=== PATIENT | female | born 1995 | race Hispanic/Latino ===

== ENCOUNTER 2023-09-14 18:00 | Inpatient (IN) | payer OTHER ==
[~2023-09-14 18:00] MED LIST: Bupivacaine 0.25% HCL 30 ML VIAL ONE; Bupivacaine/Epinephrine 0.25% 30 ML VIAL ONE
[2023-09-14 18:50] VITALS: BMI 41.5
[2023-09-14] MEDS ORDERED: Tranexamic Acid 1,000 MG/10 ML VIAL IVP PRN (18:50)
[2023-09-14] MEDS ORDERED: Oxytocin 30 units/NS 500 ML 500 ML IV SCH ×2 (18:50)
[2023-09-14] MEDS ORDERED: Carboprost 250 MCG/ML AMP IM PRN (18:50)
[2023-09-14] MEDS ORDERED: hydrALAZINE 20 MG/ML VIAL SLOW IVP PRN (18:50)
[2023-09-14] MEDS ORDERED: Diphenoxylate HCl/Atropine Tablet PO PRN (18:50)
[2023-09-14] MEDS ORDERED: Lidocaine 1% (PF) 30 ML VIAL SC PRN (18:50)
[2023-09-14] MEDS ORDERED: Misoprostol 200 MCG TAB PR PRN (18:50)
[2023-09-14] MEDS ORDERED: Ondansetron PF 4 MG/2 ML Vial IVP PRN (18:50)
[2023-09-14] MEDS ORDERED: Methylergonovine 0.2 MG/ML VIAL IM PRN (18:50)
[2023-09-14] MEDS ORDERED: Acetaminophen 500 MG TAB PO PRN (18:50)
[2023-09-14] MEDS ORDERED: Promethazine HCl 25 MG/ML VIAL IM PRN (18:50)
[2023-09-14] MEDS: Lactated Ringer's 1,000 ML IV SCH (19:00)
[2023-09-14 19:06] LABS: Hematocrit 32.2 % (34.9-44.5); Hemoglobin 11.5 g/dL (12.0-15.5); Mean Corpuscular HGB CONC 35.7 g/dL (32.0-36.0); Mean Corpuscular Hemoglobin 28.8 pg (27.0-33.0); Mean Corpuscular Volume 80.7 fl (81.6-98.3); Mean Platelet Volume 11.3 fl (7.4-10.4); Platelet Count 190 10x3/uL (150-450); RBC Distribution Width 14.7 % (11.5-14.5); Red Blood Cell (RBC) Count 3.99 10x6/uL (3.90-5.03); White Blood Cell (WBC) Count 9.3 10x3/uL (3.5-10.5)
[2023-09-14 20:53] LABS: Syphilis Antibody Nonreactive (Nonreactive); Syphilis Antibody Index 0.05 S/CO (<1.00 Non-Reactive)
[2023-09-14 20:55] LABS: HBsAg Index 0.16 S/CO (0-0.99); Hep B Surf Ag - L&D Non-Reactive S/CO (NonReactive)
[2023-09-14] MEDS: Misoprostol 100 MCG TAB VAG SCH (20:58)
[2023-09-15] MEDS: fentaNYL 50 mcg/mL 1 mL Vial SLOW IVP PRN (00:36)
[2023-09-15] MEDS ORDERED: Lactated Ringer's 500 ML IV PRN (04:11)
[2023-09-15] MEDS ORDERED: diphenhydrAMINE 50 MG/ML VIAL IVP PRN (04:11)
[2023-09-15] MEDS ORDERED: Moisturizing Cream (Eucerin) 113 GM JAR TOP PRN (04:11)
[2023-09-15] MEDS ORDERED: Promethazine HCl 25 MG/ML VIAL IM PRN ×2 (04:11→21:11)
[2023-09-15] MEDS ORDERED: ePHEDrine Sulfate 50 MG/10 ML VIAL SLOW IVP PRN (04:11)
[2023-09-15] MEDS ORDERED: Naloxone HCl 0.4 mg/ml Vial IVP PRN ×2 (04:11)
[2023-09-15] MEDS ORDERED: Communication Order-Pharmacy FS SCH (04:15)
[2023-09-15] MEDS: fentaNYL/Ropivacaine Epidural 100 ML ONE (04:35)
[2023-09-15] MEDS: Terbutaline Sulfate 1 MG/ML VIAL SC SCH (05:33)
[2023-09-15] MEDS: Oxytocin 30 units/NS 500 ML 500 ML IV SCH (08:43)
[2023-09-15] MEDS: Ondansetron PF 4 MG/2 ML Vial IVP PRN (12:42)
[2023-09-15] MEDS: fentaNYL 2 mcg/Ropivacaine 0.2% Epidural 100 ML CADD EPIDURAL SCH (15:09)
[2023-09-15] MEDS: Calcium Carbonate 500 MG ChewTAB PO SCH (15:20)
[2023-09-15] MEDS: Ibuprofen 800 MG TAB PO PRN (18:22)
[2023-09-15] MEDS: Acetaminophen 325 MG TAB PO PRN (19:06)
[2023-09-15] MEDS: Clindamycin/D5W 900 mg/50 ml Premix Bag ONE (19:45)
[2023-09-15] MEDS ORDERED: Gentamicin 330 MG in Sodium Chloride 0.9% 100 ML IVPB SCH (20:00)
[2023-09-15] MEDS: Gentamicin 330 MG, Admixture Fee 1 EACH in Sodium Chloride 0.9% 100 ML IVPB SCH (20:22)
[2023-09-15] MEDS ORDERED: Milk Of Magnesia 30 ML UDCUP PO PRN (21:11)
[2023-09-15] MEDS ORDERED: Benzocaine-Menthol 82.5 ML CAN TOP PRN (21:11)
[2023-09-15] MEDS ORDERED: Lanolin Ointment 7 GM TUBE TOP PRN (21:11)
[2023-09-15] MEDS ORDERED: hydrALAZINE 20 MG/ML VIAL SLOW IVP PRN (21:11)
[2023-09-15] MEDS ORDERED: Bisacodyl 10 MG SUPP PR PRN (21:11)
[2023-09-15] MEDS ORDERED: diphenhydrAMINE 25 MG CAP PO PRN (21:11)
[2023-09-15] MEDS ORDERED: Ondansetron PF 4 MG/2 ML Vial IVP PRN (21:11)
[2023-09-15] MEDS ORDERED: Oxytocin 30 units/NS 500 ML 500 ML IV SCH (21:11)
[2023-09-15] MEDS ORDERED: Preparation H Ointment 28 GM TUBE PR PRN (21:11)
[2023-09-15] MEDS: Ferrous Sulfate 325 MG TAB PO SCH (21:34)
[2023-09-15] MEDS: Docusate 100 MG CAP PO SCH (21:45)
[2023-09-15] MEDS ORDERED: Clindamycin/D5W 900 MG in Premix 1 BAG IVPB SCH (22:00)
[2023-09-16] MEDS: Ibuprofen 800 MG TAB PO SCH ×2 (03:06→14:38)
[2023-09-16] MEDS: Clindamycin/D5W 900 MG in Premix 1 BAG IVPB SCH ×2 (03:47→07:24)
[2023-09-16] MEDS: HYDROcodone/Acetaminophen 5/325 mg Tablet PO PRN (04:20)
[2023-09-16 06:01] LABS: Gentamicin, Random 0.5 ug/mL (See Comment)
[2023-09-16] MEDS: Boostrix 0.5 ML (Tdap) VIAL (>/=7 yrs of age) IM ONE (07:14)
[2023-09-16] MEDS: Ferrous Sulfate 325 MG TAB PO SCH (07:16)
[2023-09-16] MEDS: Prenatal Vitamin 1 TAB PO SCH (08:08)
[2023-09-16] MEDS: Docusate 100 MG CAP PO SCH (08:08)
[2023-09-18 08:50] VITALS: BP 123/71; TEMP 98.4
== END 2023-09-18 14:10 | disposition home or self-care (01) | DRG 806 ==
LOC: CSHLD 18:02 → CSHPP 09-15 20:39
PROVIDERS: ADMIT Family Medicine; ATTEND Family Medicine
PROC: 10907ZC Drainage of Amniotic Fluid, Therapeutic from Products of Conception, Via Natural or Artificial Opening (ICD-10-PCS; principal; 2023-09-15)
PROC: 10E0XZZ Delivery of Products of Conception, External Approach (ICD-10-PCS; 2023-09-15)
DX: O36.63X0 Maternal care for excessive fetal growth, third trimester, not applicable or unspecified (principal); O86.12 Endometritis following delivery; Z37.0 Single live birth; O99.214 Obesity complicating childbirth; E66.01 Morbid (severe) obesity due to excess calories; Z3A.39 39 weeks gestation of pregnancy; Z79.82 Long term (current) use of aspirin
CPT/HCPCS: 51702; 76815; 80170; 85027; 86780; 86850; 86900; 86901; 87340; J0665; J1580; J2405; J2590; J3010; J3105; J3490; J7120